=== PATIENT | male | born 1965 | race Hispanic/Latino ===

== ENCOUNTER → 2020-09-02 | Outpatient (CLI) | payer MEDICARE | END | disposition home or self-care (01) | LOC: OIH 08:49 | PROVIDERS: ATTEND Internal Medicine | DX: J45.901 Unspecified asthma with (acute) exacerbation (principal); R91.8 Other nonspecific abnormal finding of lung field; I70.0 Atherosclerosis of aorta | CPT/HCPCS: 71046 ==